=== PATIENT | male | born 1985 | race Caucasian/White ===

== ENCOUNTER 2018-09-20 02:01 | Emergency (ER) | END 2018-09-20 04:04 | disposition home or self-care (01) ==

== ENCOUNTER 2019-04-05 23:36 | Emergency (ER) | payer OTHER ==
[~2019-04-05] VITALS: Ht 160 cm; Wt 99.8 kg
[~2019-04-05 23:36] MED LIST: HYDR-4011 PO; IBUP-1542 PO; ONDA4TAB14 PO
[2019-04-05 23:37] VITALS: Ht 160 cm; Wt 99.8 kg
[2019-04-06] MEDS ORDERED: morphine 4 MG/ML VIAL IV STA (01:45)
[2019-04-06] MEDS ORDERED: SOD CHLORIDE 0.9% 1,000 ML IV STA (01:45)
[2019-04-06] MEDS ORDERED: ONDANSETRON 4 MG INJ IV STA (01:45)
[2019-04-06] MEDS ORDERED: KETOROLAC 30 MG INJ IV STA (04:21)
[2019-04-06] MEDS ORDERED: IBUP-1542 PO (04:23)
[2019-04-06] MEDS ORDERED: HYDR-4011 PO (04:23)
[2019-04-06 04:41] VITALS: BP 128/65; PULSE 68; RESP 16
--- NOTE | 2019-04-06 18:12 | ERD ---
ER Documentation Chief Complaint Chief Complaint ABD PAIN WITH NAUSEA; STARTED AT 1800 HPI 34-year-old male history of biliary colic presents with complaint of upper right quadrant pain starting last night. States that he ate some fatty meats for the episode started. States that the pain is similar to his pain of previous biliary colic. States that he has spoken to his surgeon about getting a cholecystectomy but the surgeon said until he gets an infection and is not an option for him. States that the pain is intermittent. At its height its 10 out of 10. Denies any fevers, vomiting, diarrhea, chest pain, shortness of breath. Denies any treatments. ROS All systems reviewed and are negative except as per history of present illness. Medications Home Meds Active Scripts Hydrocodone/Acetaminophen ([place] 5-325 Tablet) 1 Each Tablet, 1 TAB PO Q6H PRN for PAIN, #15 TAB Prov:EMMA DELGADO 04/06/19 Ibuprofen* (Motrin*) 600 Mg Tab, 600 MG PO Q6, #30 TAB Prov:EMMA DELGADO 04/06/19 Hydrocodone/Acetaminophen ([place] 5-325 Tablet) 1 Each Tablet, 1 TAB PO Q6H PRN for PAIN, #7 TAB Prov:SURAJ FERNANDO MD 09/20/18 Ondansetron (Ondansetron Odt) 4 Mg Tab.rapdis, 4 MG PO Q6H PRN for NAUSEA AND/OR VOMITING, #10 TAB Prov:SURAJ FERNANDO MD 09/20/18 Ibuprofen* (Motrin*) 600 Mg Tab, 600 MG PO Q6H PRN for PAIN AND OR ELEVATED TEMP, #30 TAB Prov:SURAJ FERNANDO MD 09/20/18 Allergies Allergies: Coded Allergies: No Known Allergy (Unverified , 09/20/18) PMhx/Soc Medical and Surgical Hx: pt denies Medical Hx, pt denies Surgical Hx Hx Psychiatric Problems: No Hx Alcohol Use: No Hx Substance Use: No Hx Tobacco Use: No Smoking Status: Never smoker FmHx Family History: No diabetes, No coronary disease, No other Physical Exam Vitals Vital Signs Date Temp Pulse Resp B/P (MAP) Pulse Ox O2 O2 Flow FiO2 Time Delivery Rate 04/06/19 98.3 68 16 128/65 98 Room Air 04:41 (86) 04/05/19 99.8 78 19 160/74 98 23:37 (102) Physical Exam Const: No acute distress Head: Atraumatic Eyes: Normal Conjunctiva ENT: Normal External Ears, Nose and Mouth. Neck: Full range of motion. No meningismus. Resp: Clear to auscultation bilaterally Cardio: Regular rate and rhythm, no murmurs Abd: Soft, non tender, non distended. Normal bowel sounds Skin: No petechiae or rashes Back: No midline or flank tenderness Ext: No cyanosis, or edema Neur: Awake and alert Psych: Normal Mood and Affect Result Diagram: 04/06/19 0151 04/06/19 015 Results 24 hrs Laboratory Tests Test 04/06/19 01:51 White Blood Count 9.8 10^3/ul Red Blood Count 5.06 10^6/ul Hemoglobin 14.8 g/dl Hematocrit 44.5 % Mean Corpuscular Volume 87.9 fl Mean Corpuscular Hemoglobin 29.2 pg Mean Corpuscular Hemoglobin Concent 33.3 g/dl Red Cell Distribution Width 13.6 % Platelet Count 206 10^3/UL Mean Platelet Volume 11.1 fl Immature Granulocytes % 0.200 % Neutrophils % 53.3 % Lymphocytes % 36.8 % Monocytes % 7.2 % Eosinophils % 2.1 % Basophils % 0.4 % Nucleated Red Blood Cells % 0.0 /100WBC Immature Granulocytes # 0.020 10^3/ul Neutrophils # 5.2 10^3/ul Lymphocytes # 3.6 10^3/ul Monocytes # 0.7 10^3/ul Eosinophils # 0.2 10^3/ul Basophils # 0.0 10^3/ul Nucleated Red Blood Cells # 0.0 10^3/ul Urine Color STRAW Urine Clarity CLEAR Urine pH 7.0 Urine Specific Mallory 1.019 Urine Ketones NEGATIVE mg/dL Urine Nitrite NEGATIVE mg/dL Urine Bilirubin NEGATIVE mg/dL Urine Urobilinogen NEGATIVE mg/dL Urine Leukocyte Esterase TRACE Christen/ul Urine Microscopic RBC 1 /HPF Urine Microscopic WBC 1 /HPF Urine Mucus FEW /HPF Urine Hemoglobin NEGATIVE mg/dL Urine Glucose NEGATIVE mg/dL Urine Total Protein NEGATIVE mg/dl Sodium Level 143 mmol/L Potassium Level 4.3 mmol/L Chloride Level 109 mmol/L Carbon Dioxide Level 25 mmol/L Anion Gap 9 Blood Urea Nitrogen 20 mg/dl Creatinine 0.62 mg/dl Est Glomerular Filtrat Rate mL/min > 60 mL/min Glucose Level 97 mg/dl Calcium Level 8.7 mg/dl Total Bilirubin 0.2 mg/dl Direct Bilirubin 0.00 mg/dl Indirect Bilirubin 0.2 mg/dl Aspartate Amino Transf (AST/SGOT) 39 IU/L Alanine Aminotransferase (ALT/SGPT) 53 IU/L Alkaline Phosphatase 128 IU/L Troponin I < 0.012 ng/ml Total Protein 8.1 g/dl Albumin 4.2 g/dl Globulin 3.90 g/dl Albumin/Globulin Ratio 1.07 Lipase 147 U/L Current Medications Medications Dose Sig/Cb Start Time Status Last (Trade) Ordered Route PRN Stop Time Admin Dose Reason Admin Sodium 1,000 ml @ Q1H STAT 04/06/19 DC 04/06/19 Chloride 1,000 mls/hr IV 01:45 02:10 04/06/19 02:44 Morphine 4 mg ONCE STAT 04/06/19 DC 04/06/19 Sulfate IV 01:45 02:10 (morphine) 04/06/19 01:46 Ondansetron 4 mg ONCE STAT 04/06/19 DC 04/06/19 HCl (Zofran IV 01:45 02:10 Inj) 04/06/19 01:46 Ketorolac 30 mg ONCE STAT 04/06/19 DC Tromethamine IV 04:21 (Toradol) 04/06/19 04:29 Procedures/MDM EKG: Rate/Rhythm: Normal Sinus Rhythm QRS, ST, T-waves: No changes consistent w/ acute ischemia Impression: No evidence of ischemia or arrhythmia DIAGNOSTIC IMAGING REPORT Patient: AMEENA ARORA : 1985 Age: 34 Sex: M MR #: [id number] DOS: 04/06/19 0145 Ordering MD: EMMA DELGADO Location: [facility] Room/Bed: PROCEDURE: Ultrasound right upper quadrant CLINICAL INDICATION: Pain. TECHNIQUE: Sonographic imaging of the right upper quadrant was performed with grayscale and color Doppler techniques. COMPARISON: September 20, 2018 FINDINGS: LIVER: Measures 88 point a cm in length with echogenicity suggesting fatty infiltration. GALLBLADDER: Filled with gallstones. There is no wall thickening or pericholecystic fluid. COMMON BILE DUCT: Measures up to 0.4 cm. VISUALIZED PANCREAS: Unremarkable. RIGHT KIDNEY: Measures 12.8 cm in length without appreciated abnormality. Echogenic focus noted on prior exam is not demonstrated. VISUALIZED AORTA AND INFERIOR VENA CAVA: Unremarkable. IMPRESSION: 1. Gallstones fill the gallbladder without additional sonographic evidence for acute cholecystitis. 2. Hepatomegaly with suggestion of fatty infiltration. RPTAT:HGST Georges Duarte, Physician Date Time Electronically viewed and signed by Georges Duarte, Physician on 04/06/2019 04:14 GT/ CC: EMMA DELGADO [id number] MDM: Patient's presentation is consistent with biliary colic secondary to gallstones. Ultrasound was ordered and showed gallstones with no evidence for Melvina cystitis. In addition patient's LFTs were normal and patient has no white count or fever. Patient is not vomiting. Therefore I have low suspicion for cholecystitis, cholangitis, perforation, intra-abdominal abscess, AAA, acute pancreatitis, UT, or any other emergent condition. Patient was given pain meds in the ER and his pain successfully subsided. Patient discharged with short course of [place] and ibuprofen to be used as needed. Advised patient to follow- up with his primary as he is probably going to need surgery. Patient discharged with strict ER precautions. Patient advised to follow up with PMD. All questions answered at discharge. Age clarification: patient 34 year old Departure Diagnosis: Primary Impression: Biliary colic Condition: Stable Patient Instructions: Biliary Colic With Gallstone (Confirmed) Referrals: [facility] YOU HAVE RECEIVED A MEDICAL SCREENING EXAM AND THE RESULTS INDICATE THAT YOU DO NOT HAVE A CONDITION THAT REQUIRES URGENT TREATMENT IN THE EMERGENCY DEPARTMENT. FURTHER EVALUATION AND TREATMENT OF YOUR CONDITION CAN WAIT UNTIL YOU ARE SEEN IN YOUR DOCTORS OFFICE WITHIN THE NEXT 1-2 DAYS. IT IS YOUR RESPONSIBILITY TO MAKE AN APPOINTMENT FOR FOLOW-UP CARE. IF YOU HAVE A PRIMARY DOCTOR --you should call your primary doctor and schedule an appointment IF YOU DO NOT HAVE A PRIMARY DOCTOR YOU CAN CALL OUR PHYSICIAN REFERRAL HOTLINE AT IF YOU CAN NOT AFFORD TO SEE A PHYSICIAN YOU CAN CHOSE FROM THE FOLLOWING [facility] [id number] [facility] [phone] [facility]. [facility] [address] [facility] [address] [facility]. [facility] [address] [facility]. [facility] [address] Additional Instructions: FOLLOW UP WITH YOUR PRIMARY CARE PHYSICIAN TOMORROW.Return to this facility if you are not improving as expected. EMMA DELGADO April 06, 2019 18:12 GISEL KRAUSE MD April 07, 2019 09:39
== END 2019-04-06 04:42 | disposition home or self-care (01) ==
LOC: FTE 23:36
DX: K80.20 Calculus of gallbladder without cholecystitis without obstruction (principal)
CPT/HCPCS: 36415; 76705; 80053; 81001; 83690; 84484; 85025; 96374; 96375; J2270; J2405; J7030; Z7502